=== PATIENT | male | born 1995 | race Caucasian/White ===

== ENCOUNTER 2018-10-31 22:05 | Emergency (ER) | payer BC ==
--- NOTE | 2018-10-31 23:26 | ER Document Report ---
ED Medical Screen (RME) - General Chief Complaint: Testicular Swelling Stated Complaint: TESTICULAR/SCROTAL PAIN Time Seen by Provider: 10/31/18 23:22 Primary Care Provider: TRACEE REID DO [Primary Care Provider] - Follow up as needed Notes: 22-year-old healthy male presents for right testicle/scrotum pain for 3 weeks. Patient states there is no trauma to the area and could not identify an inciting incident while at work. Patient states he is voiding okay but complains of urinary frequency with no dysuria. He is concerned because he believes his right testicle has gotten a little bit bigger. Patient denies being sexually active. TRAVEL OUTSIDE OF THE [place] IN LAST 30 DAYS: No Past Medical History Past Surgical History: Reports: Hx Orthopedic Surgery, Hx Tonsillectomy - Immunizations Immunizations up to date: Yes Hx Diphtheria, Pertussis, Tetanus Vaccination: Yes Physical Exam - Vital signs Vitals: Temp Pulse Resp BP Pulse Ox 98.8 F 86 19 152/80 H 100 10/31/18 22:15 10/31/18 22:15 10/31/18 22:15 10/31/18 22:15 10/31/18 22:15 - Genitourinary Inspection: Normal Tenderness: Testicle tender - Mild tenderness to palpation Scrotum: Normal Course - Vital Signs Vital signs: Temp Pulse Resp BP Pulse Ox 98.8 F 86 19 152/80 H 100 10/31/18 22:15 10/31/18 22:15 10/31/18 22:15 10/31/18 22:15 10/31/18 22:15 Doctor's Discharge - Discharge Referrals: TRACEE REID DO [Primary Care Provider] - Follow up as needed
--- NOTE | 2018-11-01 00:49 | RADIOLOGY REPORT (SQ) ---
EXAM DESCRIPTION: US SCROTUM COMPLETED DATE/TME: 10/31/2018 23:23 CLINICAL HISTORY: 22 years, Male, R testicle pain x 2 weeks COMPARISON: None. TECHNIQUE: Transverse and longitudinal sonographic images of the testes LIMITATIONS: None. FINDINGS: The right testes measures 5.3 x 2.2 x 4.0 cm, the left 5.0 x 2.2 x 3.8 cm. Negative for intra or extratesticular mass. The epididymides are unremarkable bilaterally. Doppler and spectral analysis with color flow was utilized. Arterial and venous flow bilaterally. IMPRESSION: Negative exam copyright 2010 [employer]- All Rights Reserved
--- NOTE | 2018-11-01 01:24 | ER Document Report ---
ED General - General Chief Complaint: Testicular Swelling Stated Complaint: TESTICULAR/SCROTAL PAIN Time Seen by Provider: 10/31/18 23:22 Primary Care Provider: SOLEDAD JUAREZ MD [NO LOCAL MD] - Follow up in 3-5 days Notes: Patient is a 22-year-old male who presents with complaint of some mild testicular soreness is been ongoing for 3 weeks. He is never been sexually active. He denies any dysuria. No fevers. No vomiting. No abnormal redness to the testicular region. No other complaints at this time. No trauma or injury to the testicular region. TRAVEL OUTSIDE OF THE [place] IN LAST 30 DAYS: No Past Medical History - Social History Smoking Status: Never Smoker Frequency of alcohol use: None Drug Abuse: None Family History: Reviewed & Not Pertinent Past Surgical History: Reports: Hx Orthopedic Surgery, Hx Tonsillectomy - Immunizations Immunizations up to date: Yes Hx Diphtheria, Pertussis, Tetanus Vaccination: Yes Review of Systems - Review of Systems Notes: My Normal Review Basic REVIEW OF SYSTEMS: CONSTITUTIONAL : Denies fever, chills, or sweats. Denies recent illness. GASTROINTESTINAL: Denies abdominal pain. Denies nausea, vomiting, or diarrhea. GENITOURINARY: Testicular soreness MUSCULOSKELETAL: Denies neck or back pain or joint pain or swelling. SKIN: Denies rash or skin lesions. NEUROLOGICAL: Denies altered mental status or loss of consciousness. Denies headache. Denies weakness or paralysis or loss of use of either side. Denies problems with gait or speech. Denies sensory or motor loss. ALL OTHER SYSTEMS REVIEWED AND NEGATIVE. Physical Exam - Vital signs Vitals: Temp Pulse Resp BP Pulse Ox 98.8 F 86 19 152/80 H 100 10/31/18 22:15 10/31/18 22:15 10/31/18 22:15 10/31/18 22:15 10/31/18 22:15 - Notes Notes: General Appearance: Well nourished, alert, cooperative, no acute distress, no obvious discomfort. Well-appearing. Vitals: reviewed, See vital signs table. Abdomen: Normal BS, soft, No rigidity, No abdominal tenderness, No guarding, no rebound, no abdominal masses, no organomegaly Genital: No tenderness to palpation of the testicular region except for just mild soreness to palpation of the right testicle. No other abnormal swelling. Cremasteric reflex is intact. No discharge from penis. Obvious inguinal hernia. Skin: warm, dry, appropriate color, no rash Neuro: speech clear, oriented x 3, normal affect, responds appropriately to questions. Course - Re-evaluation Re-evalutation: 11/01/18 03:25 Patient's testicular exam is normal appearing except for just mild soreness to palpation of the right testicle. There is no abnormal swelling. He has normal cremasteric reflex. No discharge from penis. No signs of infection on external exam. Ultrasound is negative. At this time I feel the patient is safe to be discharged home. I will refer him to urology for follow-up and recheck being that he continues to have some mild soreness in the testicle. I encouraged him return to ER if he has increasing pain, swelling, fevers, or feels unwell. Patient agrees with plan will be discharged home. Dictation of this chart was performed using voice recognition software; therefore, there may be some unintended grammatical errors. - Vital Signs Vital signs: Temp Pulse Resp BP Pulse Ox 98.8 F 86 19 152/80 H 100 10/31/18 22:15 10/31/18 22:15 10/31/18 22:15 10/31/18 22:15 10/31/18 22:15 Discharge - Discharge Clinical Impression: Testicular pain, right Condition: Good Disposition: HOME, SELF-CARE Additional Instructions: Your ultrasound does not show any concerning findings. We will have you follow up with a urologist for reevaluation. Please call the urologist, Dr. Juarez. The number is for his [place] office, but he does have a office in [place]. You can ask the office to give you an appointment at the [place] office so you do not have to drive all the way to [place]. please return to the ER if you have fevers, scrotal swelling, or worsening pain. Referrals: SOLEDAD JUAREZ MD [NO LOCAL MD] - Follow up in 3-5 days
[2018-11-01 02:14] LABS: APPEARANCE,URINE CLEAR; BILIRUBIN,URINE NEGATIVE (NEGATIVE); COLOR,URINE YELLOW; GLUCOSE, URINE NEGATIVE (NEGATIVE); KETONES,URINE NEGATIVE (NEGATIVE); LEUKOCYTE ESTERASE,URINE NEGATIVE (NEGATIVE); NITRITE,URINE NEGATIVE (NEGATIVE); PROTEIN,URINE NEGATIVE (NEGATIVE); URINE SPECIFIC GRAVITY 1.017; UROBILINOGEN,URINE NEGATIVE mg/dL (<2.0)
[2018-11-01 03:40] VITALS: BP 132/81
[2018-11-01 03:45] LABS: CHLAM PCR NOT DETECTED (NOT DETECT); GON PCR NOT DETECTED (NOT DETECT)
== END 2018-11-01 03:25 | disposition home or self-care (01) ==
LOC: ER 22:05
DX: N50.811 Right testicular pain (principal); N50.89 Other specified disorders of the male genital organs
CPT/HCPCS: 76870; 81001; 87491; 87591; 93976; 99284

== ENCOUNTER 2018-12-15 19:38 | Emergency (ER) | payer BC ==
[2018-12-15] MEDS ORDERED: KETOROLAC TROMETHAMINE 60 MG/2 ML SDV IM ONE (22:35)
[2018-12-15] MEDS ORDERED: ONDANSETRON HCL INJ/PF 4 MG/2 ML SDV IV ONE (22:35)
[2018-12-15] MEDS ORDERED: ONDANSETRON HCL INJ/PF 4 MG/2 ML SDV IM ONE ×2 (22:38→22:41)
--- NOTE | 2018-12-15 22:38 | ER Document Report ---
ED Medical Screen (RME) - General Chief Complaint: Abdominal Pain Stated Complaint: ABDOMINAL PAIN Time Seen by Provider: 12/15/18 22:35 Primary Care Provider: TRACEE REID DO [Primary Care Provider] - Follow up as needed Mode of Arrival: Ambulatory Information source: Patient Notes: 23-year-old male presents 23-year-old male presented to ED for complaint of abd ominal pain nausea and vomiting with fatigue times 2-1/2 weeks. He was seen at urgent care and sent to the emergency room to get blood hearing and other testing and to be evaluated by the emergency room. Patient is alert oriented afebrile at this time. He is nontoxic in appearance. He does have some epigastric and right lower quadrant abdominal pain. He does not have rebound tenderness. Lung sounds are clear and bowel sounds are active. I have greeted and performed a rapid initial assessment of this patient. A comprehensive ED assessment and evaluation of the patient, analysis of test results and completion of medical decision making process will be conducted by an additional ED providers. TRAVEL OUTSIDE OF THE [place] IN LAST 30 DAYS: No - Related Data Allergies/Adverse Reactions: Penicillins Allergy (Mild, Verified 11/01/18 03:36) Past Medical History Renal/ Medical History: Denies: Hx Peritoneal Dialysis Past Surgical History: Reports: Hx Orthopedic Surgery, Hx Tonsillectomy - Immunizations Immunizations up to date: Yes Hx Diphtheria, Pertussis, Tetanus Vaccination: Yes Physical Exam - Vital signs Vitals: Temp Pulse Resp BP Pulse Ox 98.1 F 68 16 135/59 H 100 12/15/18 20:11 12/15/18 20:11 12/15/18 20:11 12/15/18 20:11 12/15/18 20:11 Course - Vital Signs Vital signs: Temp Pulse Resp BP Pulse Ox 98.1 F 68 16 135/59 H 100 12/15/18 20:11 12/15/18 20:11 12/15/18 20:11 12/15/18 20:11 12/15/18 20:11 Doctor's Discharge - Discharge Referrals: TRACEE REID DO [Primary Care Provider] - Follow up as needed
[2018-12-15 23:05] LABS: APPEARANCE,URINE CLEAR; BILIRUBIN,URINE NEGATIVE (NEGATIVE); COLOR,URINE YELLOW; GLUCOSE, URINE NEGATIVE (NEGATIVE); KETONES,URINE NEGATIVE (NEGATIVE); LEUKOCYTE ESTERASE,URINE NEGATIVE (NEGATIVE); NITRITE,URINE NEGATIVE (NEGATIVE); PROTEIN,URINE NEGATIVE (NEGATIVE); URINE SPECIFIC GRAVITY 1.015; UROBILINOGEN,URINE NEGATIVE mg/dL (<2.0)
--- NOTE | 2018-12-15 23:17 | ER Document Report ---
ED General - General Chief Complaint: Abdominal Pain Stated Complaint: ABDOMINAL PAIN Time Seen by Provider: 12/15/18 22:35 Primary Care Provider: OUSMANE TORRES MD [ACTIVE STAFF] - Follow up in 3-5 days TRACEE REID DO [NO LOCAL MD] - Follow up as needed Mode of Arrival: Ambulatory Notes: Patient is a 23-year-old male that presents to the emergency department for chief complaint of generalized body aches and abdominal pain. Patient was seen in urgent care earlier in the day, for complaints of pain all over, and abdominal pain with vomiting. He had 3 episodes of vomiting today. At urgent care he was recommended come to the emergency department to be further worked up for his symptoms. He reports having these general symptoms over the past 2-1/2 weeks, on and off in intensity, but seem to be worse today so that is why he decided to seek medical attention. Denies prior history of chronic medical conditions. Denies fevers, chills, night sweats, chest pain, shortness of luisito ath or difficulty breathing, denies any diarrhea associated with this. Past Medical History: Denies chronic medical conditions Past Surgical History: Facial surgery, tonsillectomy Social History: Denies tobacco, alcohol or drug use. Family History: Reviewed and noncontributory for presenting illness Allergies: Reviewed, see documented allergy list. REVIEW OF SYSTEMS: Other than noted above, the 12 point review of systems was reviewed with the patient and were negative, all pertinent findings are included in the HPI. PHYSICAL EXAMINATION: Vital signs reviewed, nursing noted reviewed. GENERAL: Well-appearing, well-nourished and in no acute distress. HEAD: Atraumatic, normocephalic. EYES: Eyes appear normal, extraocular movements intact, sclera anicteric, conjunctiva are normal. ENT: nares patent, oropharynx clear without exudates. Moist mucous membranes. NECK: Normal range of motion, supple without lymphadenopathy LUNGS: Breath sounds clear to auscultation bilaterally and equal. No wheezes rales or rhonchi. HEART: Regular rate and rhythm without murmurs ABDOMEN: Soft, mild diffuse abdominal tenderness, worse in the right lower quadrant compared to other areas of the abdomen, normoactive bowel sounds. No rebound, guarding, or rigidity. No masses appreciated. EXTREMITIES: Nontender, good range of motion, no pitting or edema. NEUROLOGICAL: No focal neurological deficits. Moves all extremities spontaneously Motor and sensory grossly intact on exam. PSYCH: Normal mood, flat affect. SKIN: Warm, Dry, normal turgor, no rashes or lesions noted on exposed skin TRAVEL OUTSIDE OF THE [place] IN LAST 30 DAYS: No - Related Data Allergies/Adverse Reactions: Penicillins Allergy (Mild, Verified 11/01/18 03:36) Past Medical History - General Information source: Patient - Social History Smoking Status: Unknown if Ever Smoked Family History: Reviewed & Not Pertinent Patient has suicidal ideation: No Patient has homicidal ideation: No Renal/ Medical History: Denies: Hx Peritoneal Dialysis Past Surgical History: Reports: Hx Orthopedic Surgery, Hx Tonsillectomy - Immunizations Immunizations up to date: Yes Hx Diphtheria, Pertussis, Tetanus Vaccination: Yes Physical Exam - Vital signs Vitals: Temp Pulse Resp BP Pulse Ox 98.1 F 68 16 135/59 H 100 12/15/18 20:11 12/15/18 20:11 12/15/18 20:11 12/15/18 20:11 12/15/18 20:11 Course - Re-evaluation Re-evalutation: Patient seen and examined vital signs reviewed. Laboratory data and/or imaging were ordered as appropriate for the patient's presenting symptoms and complaint, with consideration of any critical or life threatening conditions that may be associated with their obtained history and exam as noted above. Patient was treated with IV fluids, he was given IM Toradol in triage as well and Zofran Results were reviewed when available and demonstrated unremarkable blood work and urinalysis, his CT scan was concerning for possible enterocolitis, patient does not have history of Crohn's disease, he is been having symptoms for about 2 and half weeks now, it is possible this could be a viral infection, however discussed with the family and the patient that workup as an outpatient with gastroenterology would be indicated at this point, I will discharge him home with a prescription for Zofran and Bentyl to take in the meantime, patient was agreeable to this plan of care. Evaluation was most consistent with abdominal pain, enterocolitis Results were discussed with the patient at this point, after careful consideration I feel that that patient can be discharged from the emergency department, the patient was educated treatments and reasons to return to the emergency department based on their presumed diagnosis as noted above, they were advised to followup with a primary care physician in 2-3 days. Patient was agreeable to plan of care. *Note is created using voice recognition software and may contain spelling, syntax or grammatical errors. Laboratory 12/15/18 12/15/18 12/15/18 22:51 22:51 22:51 WBC 7.7 RBC 4.97 Hgb 14.8 Hct 40.6 MCV 82 MCH 29.7 MCHC 36.4 H RDW 13.3 Plt Count 215 Seg Neutrophils % 73.5 Lymphocytes % 18.1 Monocytes % 7.1 Eosinophils % 1.0 Basophils % 0.3 Absolute Neutrophils 5.6 Absolute Lymphocytes 1.4 Absolute Monocytes 0.5 Absolute Eosinophils 0.1 Absolute Basophils 0.0 ESR 11 Sodium 139.6 Potassium 4.1 Chloride 101 Carbon Dioxide 28 Anion Gap 11 BUN 13 Creatinine 0.99 Est GFR ( Amer) > 60 Est GFR (Non-Af Amer) > 60 Glucose 90 Calcium 10.2 Total Bilirubin 1.0 Direct Bilirubin 0.3 Neonat Total Bilirubin Not Reportable Neonat Direct Bilirubin Not Reportable Neonat Indirect Bili Not Reportable AST 27 ALT 45 Alkaline Phosphatase 62 C-Reactive Protein 37.5 H Total Protein 7.5 Albumin 4.6 Lipase Urine Color YELLOW Urine Appearance CLEAR Urine pH 6.0 Ur Specific [place] 1.015 Urine Protein NEGATIVE Urine Glucose (UA) NEGATIVE Urine Ketones NEGATIVE Urine Blood NEGATIVE Urine Nitrite NEGATIVE Urine Bilirubin NEGATIVE Urine Urobilinogen NEGATIVE Ur Leukocyte Esterase NEGATIVE Urine WBC (Auto) 0 Urine RBC (Auto) 0 Urine Mucus (Auto) RARE Urine Ascorbic Acid NEGATIVE Monotest 12/15/18 12/15/18 22:51 22:51 WBC RBC Hgb Hct MCV MCH MCHC RDW Plt Count Seg Neutrophils % Lymphocytes % Monocytes % Eosinophils % Basophils % Absolute Neutrophils Absolute Lymphocytes Absolute Monocytes Absolute Eosinophils Absolute Basophils ESR Sodium Potassium Chloride Carbon Dioxide Anion Gap BUN Creatinine Est GFR ( Amer) Est GFR (Non-Af Amer) Glucose Calcium Total Bilirubin Direct Bilirubin Neonat Total Bilirubin Neonat Direct Bilirubin Neonat Indirect Bili AST ALT Alkaline Phosphatase C-Reactive Protein Total Protein Albumin Lipase 52.7 Urine Color Urine Appearance Urine pH Ur Specific [place] Urine Protein Urine Glucose (UA) Urine Ketones Urine Blood Urine Nitrite Urine Bilirubin Urine Urobilinogen Ur Leukocyte Esterase Urine WBC (Auto) Urine RBC (Auto) Urine Mucus (Auto) Urine Ascorbic Acid Monotest NEGATIVE Abdomen/Pelvis CT 12/15/18 23:30 IMPRESSION: Findings which may represent enterocolitis in the correct clinical setting. - Vital Signs Vital signs: Temp Pulse Resp BP Pulse Ox 98.1 F 54 L 16 124/41 L 100 12/15/18 20:11 12/16/18 01:39 12/15/18 20:11 12/16/18 01:39 12/16/18 01:39 - Laboratory Result Diagrams: 12/15/18 22:51 12/15/18 22:51 Laboratory results interpreted by me: 12/15/18 12/15/18 22:51 22:51 MCHC 36.4 H C-Reactive Protein 37.5 H Discharge - Discharge Clinical Impression: Enterocolitis Abdominal pain Qualifiers: Abdominal location: unspecified location Qualified Code(s): R10.9 - Unspecified abdominal pain Condition: Stable Disposition: HOME, SELF-CARE Instructions: Abdominal Pain ([facility]) Additional Instructions: Your imaging today demonstrated possible enterocolitis, which can be liability claims representative of possible Crohn's disease, versus a viral illness, he should follow-up with a green material value added assessor, to further evaluate for this. And may need a colonoscopy, or endoscopy or both. Please take the medication prescribed to see if it will help with some of the symptoms, of nausea and abdominal cramping. Prescriptions: Dicyclomine HCl [Bentyl 20 mg Tablet] 20 mg PO QID PRN #30 tablet PRN Reason: Abdominal Cramping Ondansetron [Zofran Odt 4 mg Tablet] 1 tab PO Q8H PRN #15 tab.rapdis PRN Reason: For Nausea/Vomiting Forms: Return to Work Referrals: TRACEE REID DO [NO LOCAL MD] - Follow up as needed OUSMANE TORRES MD [ACTIVE STAFF] - Follow up in 3-5 days
[2018-12-15 23:20] LABS: ABSOLUTE EOSINOPHILS # (AUTO) 0.1 10^3/uL (0.0-0.6); ABSOLUTE LYMPHOCYTES (AUTO) 1.4 10^3/uL (0.5-4.7); ABSOLUTE MONOCYTES (AUTO) 0.5 10^3/uL (0.1-1.4); ABSOLUTE NEUT (AUTO) 5.6 10^3/uL (1.7-8.2); BASOPHILS % (AUTO) 0.3 % (0-2); HEMATOCRIT 40.6 % (37.9-51.0); HEMOGLOBIN 14.8 g/dL (13.5-17.0); LYMPHOCYTES % (AUTO) 18.1 % (13-45); MEAN CORPUSCULAR HEMOGLOBIN 29.7 pg (27.0-33.4); MEAN CORPUSCULAR HGB CONC 36.4 g/dL (32.0-36.0); MEAN CORPUSCULAR VOLUME 82 fl (80-97); MONOCYTES % (AUTO) 7.1 % (3-13); PLATELET COUNT 215 10^3/uL (150-450); RED BLOOD COUNT 4.97 10^6/uL (4.35-5.55); RED CELL DISTRIBUTION WIDTH 13.3 % (11.5-14.0); SEGMENTED NEUTROPHILS % (AUTO) 73.5 % (42-78); TOTAL CELLS COUNTED % (AUTO) 100 %; WHITE BLOOD COUNT 7.7 10^3/uL (4.0-10.5)
[2018-12-15 23:27] LABS: ALANINE AMINOTRANSFERASE 45 U/L (21-72); ALBUMIN 4.6 g/dL (3.5-5.0); ALKALINE PHOSPHATASE 62 U/L (38-126); ANION GAP 11 (5-19); ASPARTATE AMINO TRANSFERASE 27 U/L (17-59); BILIRUBIN,DIRECT 0.3 mg/dL (0.0-0.4); BLOOD UREA NITROGEN 13 mg/dL (7-20); C-REACTIVE PROTEIN 37.5 mg/L (<10.0); CALCIUM 10.2 mg/dL (8.4-10.2); CARBON DIOXIDE 28 mmol/L (22-30); CHLORIDE 101 mmol/L (98-107); GLUCOSE 90 mg/dL (75-110); POTASSIUM 4.1 mmol/L (3.6-5.0); SODIUM 139.6 mmol/L (137-145); TOTAL PROTEIN 7.5 g/dL (6.3-8.2)
[2018-12-15] MEDS ORDERED: METOCLOPRAMIDE HCL INJ/PF 10 MG/2 ML SDV IV ONE (23:30)
[2018-12-15] MEDS ORDERED: NORMAL SALINE 1000 ML 1,000 ML IV ONE (23:30)
[2018-12-16] LABS: ERYTHROCYTE SEDIMENTATION RATE 11 mm/hr (0-15)
--- NOTE | 2018-12-16 01:02 | RADIOLOGY REPORT (SQ) ---
CT ABDOMEN PELVIS WITH IV CONTRAST HISTORY: Right-sided abdominal pain COMPARISON: None. TECHNIQUE: CT scan of the abdomen and pelvis was performed with IV contrast. This exam was performed according to our departmental dose-optimization program, which includes automated exposure control, adjustment of the mA and/or kV according to patient size and/or use of iterative reconstruction technique. FINDINGS: The lung bases are clear. No pleural or pericardial effusions. There is no hiatal hernia. The liver, spleen, pancreas, gallbladder, adrenal glands, and kidneys are unremarkable. No urinary stones are seen. The pelvic organs are also unremarkable. No small bowel obstruction. The appendix is not well visualized; however there are no inflammatory changes in the right lower quadrant. There are a few fluid-filled loops of distal small bowel and proximal colon suggestive of enterocolitis. No intraperitoneal free fluid or free air is identified. The aorta is normal caliber. No acute osseous findings are appreciated. There is no body wall hernia. IMPRESSION: Findings which may represent enterocolitis in the correct clinical setting.
[2018-12-16 01:42] VITALS: BP 124/41
== END 2018-12-16 01:42 | disposition home or self-care (01) ==
LOC: ER 19:38
DX: K52.9 Noninfective gastroenteritis and colitis, unspecified (principal); R11.10 Vomiting, unspecified
CPT/HCPCS: 99284; 96372; 96374; 36415; 83690; 85025; 85652; 86140; 86308; 80053; 81001; 74177; J1885; J2765; J2405; J7030